=== PATIENT | female | born 1955 | race Caucasian/White ===

== ENCOUNTER 2023-08-04 06:32 | Outpatient (CLI) | payer MEDICARE | END 2023-08-04 23:59 | disposition EMS.NT | LOC: EMS 06:32 | DX: M25.571 Pain in right ankle and joints of right foot (principal); X50.9XXA Other and unspecified overexertion or strenuous movements or postures, initial encounter ==

== ENCOUNTER 2023-08-04 07:24 | Emergency (ER) | payer BC, MEDICARE ==
--- NOTE | 2023-08-04 07:37 | ED Physician Documentation ---
PD HPI LOWER EXT INJURY - Stated complaint Stated Complaint: RT ANKLE INJ - Chief complaint Chief Complaint: Trauma Ext - History obtained from History obtained from: Patient - History of Present Illness PD HPI LOW EXT INJURY LOCATION: Right, Ankle Type of injury: Twist (inversion when got up from sitting in chair. Pain right away and hurting for weight bearing. 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 : None HEENT: None Psych: None Musculoskeletal: None Derm: None, Herpes zoster - Past Surgical History Past Surgical History: Yes Ortho: Other /ROTARY BAR OPERATOR: Other HEENT: Tonsil/Adenoidectomy - Present Medications Home Medications: Ambulatory Orders Medication Instructions Recorded Confirmed Atorvastatin [Lipitor] 20 mg PO QPM 08/04/23 08/04/23 buprenorphine HCL [Buprenorphine 8 mg SL TID 08/04/23 08/04/23 HCl] - Allergies Allergies/Adverse Reactions: Allergies Allergy/AdvReac Type Severity Reaction Status Date / Time No Known Drug Allergies Allergy Verified 08/04/23 07:27 - Social History Does the pt smoke?: Yes Smoking Status: Current every day smoker Does the pt drink ETOH?: No Does the pt have substance abuse?: Yes Substance Use and Type: Marijuana - Immunizations Immunizations are current?: No Immunizations: No immun - POLST Patient has POLST: No PD ED PE NORMAL - Vitals Vital signs reviewed: Yes - General General: Alert and oriented X 3, No acute distress, Well developed/nourished - Derm Derm: Normal color, Warm and dry - Extremities Extremities: Other (right lateral malleolus with tenderness and swelling. Medially not tender and achilles firm and intact. ) - Neuro Neuro: Alert and oriented X 3, No motor deficit, No sensory deficit, Normal speech Results - Vitals Vitals: Vital Signs - 24 hr 08/04/23 08/04/23 07:27 08:47 Temperature 36.5 C 36.7 C Heart Rate 80 66 Respiratory 18 15 Rate Blood Pressure 144/86 H 126/79 O2 Saturation 100 99 Oxygen O2 Source Room air - Rads (name of study) right ankle Relevant Findings:: Prelim report reviewed, EMP independent interpretation of test PD Medical Decision Making - ED course Complexity details: considered differential (had inversion injury of ankle nad now too painful full weight bearing. Tender at maleulos. Xray showing distal fibular fracture, nondisplaced, and no change of mortis. Basic stress testing is firm and no laxity with ankle ligaments. Pain though with inversion. Proximal fibula not tender. ), d/w patient Departure - Departure Disposition: 01 Home, Self Care Clinical Impression: Inversion sprain of ankle, Fracture of distal fibula, Bunion of great toe of right foot Condition: Stable Record reviewed to determine appropriate education?: Yes Instructions: ED Fx Ankle Lateral Malleolus Follow-Up: [facility] [Provider Group] [facility] [Provider Group] [facility] [Provider Group] Comments: You do have a fracture of the outer bone of the ankle. The ankle joint/mortise is still stable and this can get treated with a walking cast boot and crutches. To begin with try to have minimal to no weight on it to help with the initial fracture and also for discomfort. Ice elevate and rest your ankle often to reduce swelling. Anti-inflammatory such as ibuprofen or naproxen 3 times daily with food. Add Tylenol every 4-6 hours for the neck several days to week. This combination should help with the pain and discomfort if taken regularly for the next several days to week. Continue your other usual medicines. Call the orthopedic office for follow-up appointment for about 1-1 and half weeks from now to ensure it is healing adequately. Regarding your toe bunion, I did provide the names for 2 of the podiatry offices on the [place] here. Forms: PCP List Discharge Date/Time: 08/04/23 08:52
--- NOTE | 2023-08-04 08:21 | XRAY Report ---
PROCEDURE: Ankle 3+V RT INDICATIONS: inversion injury with malleolar pain TECHNIQUE: 3 views of the ankle were acquired. COMPARISON: None. FINDINGS: Bones: Nondisplaced, mainly transverse fracture across the lateral malleolus below the level of the syndesmosis. The ankle mortise remains intact. Moderate-sized calcaneal spur. Soft tissues: No tibiotalar joint effusion. Achilles tendon appears normal. IMPRESSION: Nondisplaced lateral malleolar fracture. Reviewed by: Mary Tellez MD on 08/04/2023 8:20 AM PDT Approved by: Mary Tellez MD on 08/04/2023 8:20 AM PDT Station ID: [id number]
[2023-08-04 09:04] VITALS: BP 126/79; O2SAT 99
== END 2023-08-04 08:52 | disposition home or self-care (01) ==
LOC: ED 07:24
DX: S82.64XA Nondisplaced fracture of lateral malleolus of right fibula, initial encounter for closed fracture (principal); X50.1XXA Overexertion from prolonged static or awkward postures, initial encounter; F17.200 Nicotine dependence, unspecified, uncomplicated
CPT/HCPCS: 99283

== ENCOUNTER 2023-10-05 14:29 | Outpatient (CLI) | payer MEDICARE ==
--- NOTE | 2023-10-05 15:26 | XRAY Report ---
PROCEDURE: Ankle 3+V RT INDICATIONS: RIGHT ANKLE PAIN, FIB FRACTURE TECHNIQUE: 3 views of the ankle were acquired. COMPARISON: 08/04/2023. FINDINGS: Bones: Interval progress in healing of a lateral malleolar fracture, almost completely healed. 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 No new fractures. No dislocation. Ankle mortise is normally aligned. No suspicious bony lesions. Soft tissues: No tibiotalar joint effusion. Achilles tendon appears normal. IMPRESSION: Expected interval progress in healing of a lateral malleolar fracture Reviewed by: Marcell Chandra MD on 10/05/2023 3:25 PM PDT Approved by: Marcell Chandra MD on 10/05/2023 3:25 PM PDT Station ID: [id number]
== END 2023-10-05 14:30 | disposition home or self-care (01) ==
LOC: DI 14:29
PROVIDERS: ATTEND Podiatrist
DX: S82.61XD Displaced fracture of lateral malleolus of right fibula, subsequent encounter for closed fracture with routine healing (principal)